=== PATIENT | female | born 1965 | race Caucasian/White ===

== ENCOUNTER 2018-12-12 06:57 | Inpatient (IN) | payer OTHER ==
--- NOTE | 2018-12-12 06:55 | PCM.PREANE ---
Preanesthetic Assessment - Anesthesia/Transfusion/Family Hx Anesthesia History: Prior Anesthesia Without Reaction Family History of Anesthesia Reaction: No Transfusion History: No Prior Transfusion(s) Intubation History: Unknown - Review of Systems General: No Symptoms Pulmonary: No Symptoms (ETOH: rarely), Cough (dry) Cardiovascular: No Symptoms (HTN) Gastrointestinal: No Symptoms Neurological: No Symptoms (vertigo) Other: Reports: None - Physical Assessment NPO Status Date: 12/11/18 NPO Status Time: 21:00 Vital Signs: BP: 170/88 resp: 18 temp:98.2F HR=85 Sat: 97% Height: 1.63 m Weight: 94 kg ASA Class: 2 Mental Status: Alert & Oriented x3 Airway Class: Mallampati = 2 Dentition: Reports: Normal Dentition, Omega(s), Caries Thyro-Mental Finger Breadths: 3 Mouth Opening Finger Breadths: 3 ROM/Head Extension: Full Lungs: Clear to Auscultation, Normal Respiratory Effort Cardiovascular: Regular Rate, Regular Rhythm, No Murmurs - Lab Values: Laboratory Last Values WBC 6.79 K/mm3 (3.98-10.04) 12/11/18 16:38 RBC 4.51 M/mm3 (3.98-5.22) 12/11/18 16:38 Hgb 13.8 gm/L (11.2-15.7) 12/11/18 16:38 Hct 41.9 % (34.1-44.9) 12/11/18 16:38 MCV 92.9 fl (79.4-94.8) 12/11/18 16:38 MCH 30.6 pg (25.6-32.2) 12/11/18 16:38 MCHC 32.9 g/dl (32.2-35.5) 12/11/18 16:38 RDW Std Deviation 43.7 fL (36.4-46.3) 12/11/18 16:38 Plt Count 300 K/mm3 (182-369) 12/11/18 16:38 MPV 9.7 fl (9.4-12.3) 12/11/18 16:38 Neut % (Auto) 51.4 % (34.0-71.1) 12/11/18 16:38 Lymph % (Auto) 36.4 % (19.3-51.7) 12/11/18 16:38 Lucas % (Auto) 11.6 % (4.7-12.5) 12/11/18 16:38 Eos % (Auto) 0.1 (0.7-5.8) L 12/11/18 16:38 Baso % (Auto) 0.4 % (0.1-1.2) 12/11/18 16:38 Neut # (Auto) 3.48 K/mm3 (1.56-6.13) 12/11/18 16:38 Lymph # (Auto) 2.47 K/mm3 (1.18-3.74) 12/11/18 16:38 Lucas # (Auto) 0.79 K/mm3 (0.24-0.36) H 12/11/18 16:38 Eos # (Auto) 0.01 K/mm3 (0.04-0.36) L 12/11/18 16:38 Baso # (Auto) 0.03 K/mm3 (0.01-0.08) 12/11/18 16:38 Sodium 138 mEq/L (136-145) 12/11/18 16:38 Potassium 3.6 mEq/L (3.5-5.1) 12/11/18 16:38 Chloride 100 mEq/L (98-107) 12/11/18 16:38 Carbon Dioxide 23 mEq/L (21-32) 12/11/18 16:38 Anion Gap 18.6 (5-15) H 12/11/18 16:38 BUN 13 mg/dL (7-18) 12/11/18 16:38 Creatinine 0.8 mg/dL (0.55-1.02) 12/11/18 16:38 Est Cr Clr Drug Dosing TNP 12/11/18 16:38 Estimated GFR (MDRD) > 60 mL/min (>60) 12/11/18 16:38 BUN/Creatinine Ratio 16.3 (14-18) 12/11/18 16:38 Glucose 134 mg/dL (74-106) H 12/11/18 16:38 Calcium 9.4 mg/dL (8.5-10.1) 12/11/18 16:38 Total Bilirubin 0.6 mg/dL (0.2-1.0) 12/11/18 16:38 AST 23 U/L (15-37) 12/11/18 16:38 ALT 26 U/L (14-59) 12/11/18 16:38 Alkaline Phosphatase 77 U/L (46-116) 12/11/18 16:38 Total Protein 7.8 g/dl (6.4-8.2) 12/11/18 16:38 Albumin 3.7 g/dl (3.4-5.0) 12/11/18 16:38 Globulin 4.1 gm/dL 12/11/18 16:38 Albumin/Globulin Ratio 0.9 (1-2) L 12/11/18 16:38 Urine Color Yellow (Yellow) 12/11/18 16:38 Urine Appearance Clear (Clear) 12/11/18 16:38 Urine pH 6.0 (5.0-8.0) 12/11/18 16:38 Ur Specific [place] 1.025 (1.005-1.030) 12/11/18 16:38 Urine Protein Negative (Negative) 12/11/18 16:38 Urine Glucose (UA) Negative (Negative) 12/11/18 16:38 Urine Ketones Negative (Negative) 12/11/18 16:38 Urine Occult Blood 1+ (Negative) H 12/11/18 16:38 Urine Nitrite Negative (Negative) 12/11/18 16:38 Urine Bilirubin Negative (Negative) 12/11/18 16:38 Urine Urobilinogen 0.2 (0.2-1.0) 12/11/18 16:38 Ur Leukocyte Esterase Negative (Negative) 12/11/18 16:38 Urine HCG, Qual Negative (NEGATIVE) 12/11/18 16:38 Blood Type O POSITIVE 12/11/18 16:38 All labs reviewed and noted and within acceptable ranges to proceed with scheduled procedure. - Imaging/EKG Impressions: EKG: SR rate= 86 - Allergies Allergies/Adverse Reactions: Allergies Allergy/AdvReac Type Severity Reaction Status Date / Time nickel Allergy Rash Verified 12/11/18 17:20 topical agents Allergy Rash Uncoded 12/11/18 17:20 - Anesthesia Plan Pre-Op Medication Ordered: None - Acknowledgements Anesthesia Type Planned: General Anesthesia Pt an Appropriate Candidate for the Planned Anesthesia: Yes Alternatives and Risks of Anesthesia Discussed w Pt/Guardian: Yes Pt/Guardian Understands and Agrees with Anesthesia Plan: Yes PreAnesthesia Questionnaire HEENT History: Reports: Sinusitis Cardiovascular History: Reports: High Cholesterol, Hypertension Respiratory History: Reports: None Gastrointestinal History: Reports: Other (See Below) Other Gastrointestinal History: colitis Genitourinary History: Reports: None 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 (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 Below) Other OB/BYN History: dysmenorrhea, menorrhagia Musculoskeletal History: Reports: None Neurological History: Reports: None Psychiatric History: Reports: None Endocrine/Metabolic History: Reports: None Hematologic History: Reports: None Immunologic History: Reports: None Oncologic (Cancer) History: Reports: None Dermatologic History: Reports: None - Past Surgical History Head Surgeries/Procedures: Reports: None Cardiovascular Surgical History: Reports: None Respiratory Surgical History: Reports: None GI Surgical History: Reports: None Female Surgical History: Reports: None Male Surgical History: Reports: None Endocrine Surgical History: Reports: None Neurological Surgical History: Reports: None Musculoskeletal Surgical History: Reports: None Oncologic Surgical History: Reports: None Dermatological Surgical History: Reports: None - SUBSTANCE USE Smoking Status *Q: Never Smoker - HOME MEDS Home Medications: Home Meds Calcium Carbonate [Calcium] 500 mg PO DAILY 12/11/18 [History] FA/Lycopene/Lut/MV,Ca,Iron,Min [Centrum] 1 tab PO DAILY 12/11/18 [History] Losartan Potassium 50 mg PO DAILY 12/11/18 [History] Rosuvastatin Calcium 10 mg PO DAILY 12/11/18 [History] - CURRENT (IN HOUSE) MEDS Current Meds: Current Medications Lactated Ringer's (Ringers, Lactated) 1,000 mls @ 125 mls/hr IV ASDIRECTED BARBARA Stop: 12/12/18 23:00 Lidocaine/Sodium Bicarbonate (Buffered Lidocaine 1% In Ns 8.4%) 0.25 ml IDERM ONETIME PRN PRN Reason: Prior to IV Start Stop: 12/12/18 18:00 Sodium Chloride (Saline Flush) 10 ml FLUSH ASDIRECTED PRN PRN Reason: Keep Vein Open Stop: 12/12/18 18:00
[~2018-12-12 06:57] MED LIST: Lactated Ringers 1,000 ML IV SCH; Lidocaine 1%/Sod Bicarbonate in NS 8.4% 1 ML Syringe IDERM PRN; Sodium Chloride 0.9% 10 ML Syringe FLUSH PRN
[2018-12-12] MEDS ORDERED: Lidocaine 1% 6 ML ONE (07:32)
[2018-12-12] MEDS ORDERED: Midazolam 1 MG/ML 2 ML SDV ONE (07:32)
[2018-12-12] MEDS ORDERED: Ketorolac 30 MG/ML SDV ONE (07:32)
[2018-12-12] MEDS ORDERED: Dexamethasone 4 MG/ML 5 ML MDV ONE (07:32)
[2018-12-12] MEDS ORDERED: Propofol 200 MG/20 ML SDV ONE (07:32)
[2018-12-12] MEDS ORDERED: Lactated Ringers 1,000 ML ONE (07:32)
[2018-12-12] MEDS ORDERED: Ondansetron 4 MG/2 ML SDV ONE (07:32)
[2018-12-12] MEDS ORDERED: ceFAZolin 1 GM Vial ONE (07:32)
[2018-12-12] MEDS ORDERED: HYDROmorphone 0.5 MG/0.5 ML Syringe ONE (07:32)
[2018-12-12] MEDS ORDERED: Phenylephrine/Normal Saline 100 MCG/ML 10 ML Syringe ONE (07:32)
[2018-12-12] MEDS ORDERED: fentaNYL 250 MCG/5 ML SDV ONE (07:33)
[2018-12-12] MEDS ORDERED: Rocuronium 50 MG/5 ML Vial ONE ×2 (07:38→08:59)
[2018-12-12] MEDS ORDERED: Bupivacaine 0.5% 30 ML SDV ONE (07:39)
[2018-12-12] MEDS ORDERED: Sodium Chloride 0.9% 50 ML SDV ONE (07:39)
[2018-12-12] MEDS ORDERED: Lidocaine 1% with EPINEPHrine 1:100,000 20 ML MDV ONE (07:39)
[2018-12-12] MEDS ORDERED: Ondansetron 4 MG/2 ML SDV IVPUSH PRN ×2 (08:37→11:34)
[2018-12-12] MEDS ORDERED: ePHEDrine/Normal Saline 25 MG/5 ML Syringe ONE (08:37)
[2018-12-12] MEDS ORDERED: diphenhydrAMINE 50 MG/ML SDV IVPUSH PRN (08:37)
[2018-12-12] MEDS ORDERED: ePHEDrine 50 MG/ML SDV IVPUSH PRN (08:37)
[2018-12-12] MEDS ORDERED: Phenylephrine 1 MG in Sodium Chloride 0.9% 10 ML IV SCH (08:45)
[2018-12-12] MEDS ORDERED: Neostigmine Methylsulfate 1 MG/ML 5 ML Syringe ONE (08:55)
--- NOTE | 2018-12-12 09:43 | PCM.POSTAN ---
POST ANESTHESIA ASSESSMENT - MENTAL STATUS Mental Status: Alert - VITAL SIGNS Vital Signs: Last Vital Signs Temp 98.5 C H 12/12/18 09:34 Pulse 85 12/12/18 09:34 Resp 18 12/12/18 09:34 BP 170/88 H 12/12/18 09:34 Pulse Ox 97 12/12/18 09:34 - RESPIRATORY Respiratory Status: Respiratory Rate WNL, Airway Patent, O2 Saturation Stable, Supplemental Oxygen - CARDIOVASCULAR CV Status: Pulse Rate WNL, Blood Pressure Stable - GASTROINTESTINAL GI Status: No Symptoms - POST OP HYDRATION Hydration Status: Adequate & Stable
--- NOTE | 2018-12-12 09:51 | PCM.OPNOTE ---
- General Post-Op/Procedure Note Date of Surgery/Procedure: 12/12/18 Operative Procedure(s): Total abdominal hysterectomy with bilateral salpingectomy and right oophorectomy through Pfannenstiel skin incision Findings: Uterus is small. Patient had a pedunculated fibroid coming off the posterior fundal area. Both ovaries were small but functional in appearance. No other pelvic pathology noted. Pre Op Diagnosis: 1. Menorrhagia. 2. Dysmenorrhea. 3. Uterine fibroid Post-Op Diagnosis: Same Anesthesia Technique: General ET Tube Other Anesthesia Type: Marcaine 0.5%15 mL local Primary Surgeon: Damian Ball Secondary Surgeon: Norman Murphy Anesthesia Provider: Annalisa Tomlinson Laser Cutter: Kati Veliz Reason Laser Cutter Was Necessary: Patient safety, quality of care, assistance and retraction. Pathology: Uterus, bilateral tubes and right ovary as 1 specimen Fluid Replacement, Intraop: 1,400 Output, Urine Amount: 125 EBL in mLs: 10 Drain/Tube Comments:: Indwelling bladder catheter Complications: None Condition: Good Free Text/Narrative:: Surgery duration: 45 minutes Procedure: After adequate consent was obtained, the patient was taken to the operating room. She was given 2 g of Ancef IV for infection prophylaxis. She had sequential compression stockings placed for DVT prophylaxis. She is administered general endotracheal anesthesia. After adequate administration of anesthesia patient patient examined under anesthesia. The narrow pubic angle and the smallness of the canal prohibited vaginal posterior hysterectomy. She was then placed in a frog-leg position and was prepped vaginally and abdominally in the routine fashion. Anderson catheter was placed. Patient's abdomen was then opened through her old Pfannenstiel skin incision scar. Old scar was removed as it was somewhat hypertrophic. The incision was carried down through skin, subcutaneous and fascial layers. Abdominal cavity was entered without problems. Anatomy as described above. A medium sized Edd self-retaining retractor was placed. The uterus was elevated with a double-tooth tenaculum at the fundus. Using a Enseal vessel closure device the right infundibulopelvic ligament and eventually the fallopian tube mesosalpinx was taken down. Left ovary was conserved per patient desire.he ovarian ligament, round ligament, broad ligament were then taken down in a routine stepwise fashion using the Enseal system. Same was done on patient' s left sideThe exception that the ovary was conserved. . The cardinal ligaments and taken down on each side to the level of the to the cervix. The angles of the vagina were then crossclamped using Stefania clamps 2 these pedicles were cut and were suture ligated with Stefania stitch of #1 Vicryl. A short running locked #1 Vicryl suture was then placed in the mid incision to complete the closure. Hemostasis was confirmed at this time. The pelvis was irrigated with fluid aspirated. The one sponge that had been placed was removed. The abdominal was then closed. The fascia was closed with a running suture of #1 PDS from angle to angle. The subcutaneous area was closed with 20 Monocryl suture first an interrupted layer. Subcuticular closure was then undertaken using 3-0 Monocryl suture on the Nicolás needle. The incision was further asked made with Prineo mesh. The patient was awakened from general endotracheal anesthesia and was discharged from the operating room in good condition.
[2018-12-12] MEDS ORDERED: Scopolamine 1.5 MG Transdermal Patch TOP ONE (10:04)
[2018-12-12] MEDS: HYDROmorphone 0.5 MG/0.5 ML Syringe IVPUSH PRN ×3 (10:11→11:07)
[2018-12-12] MEDS: fentaNYL 100 MCG/2 ML SDV IVPUSH PRN ×2 (10:21→10:48)
[2018-12-12] MEDS ORDERED: HYDROmorphone 0.5 MG/0.5 ML Syringe IVPUSH PRN (11:34)
[2018-12-12] MEDS ORDERED: Lactated Ringers 1,000 ML IV SCH (11:34)
[2018-12-12] MEDS ORDERED: Ibuprofen 400 MG Tab PO PRN (15:00)
[2018-12-12] MEDS: Acetaminophen/oxyCODONE 325-5 MG Tab PO PRN ×2 (15:28→21:04)
[2018-12-12] MEDS: Docusate Sodium 100 MG Cap PO SCH (20:37)
[2018-12-13] MEDS: Acetaminophen/oxyCODONE 325-5 MG Tab PO PRN (05:27)
--- NOTE | 2018-12-13 07:25 | PCM.DCSUM1 ---
Discharge Summary - Hospital Course Free Text/Narrative:: The patient is a 53-year-old 0 para 0 white female who was admitted on after a total abdominal hysterectomy with bilateral salpingectomy and right oophorectomy. She is admitted for pain control and control of nausea. He is done well in the course of her hospital stay. She is desiring discharge home at this time. Admitting diagnosis: 1. Menorrhagia 2. Dysmenorrhea 3. Uterine fibroid Diagnosis: Stroke: No - Discharge Data Discharge Date: 12/13/18 Discharge Disposition: Home, Self-Care 01 Condition: Good - Referral to Home Health Primary Care Physician: Мария Murphy NP - Patient Summary/Data Operative Procedure(s) Performed: Total abdominal hysterectomy with bilateral salpingectomy and right oophorectomy through Pfannenstiel skin incision - Patient Instructions Diet: Regular Diet as Tolerated Activity: As Tolerated (No intercourse or tampons. No lifting greater than 15 pounds or driving a car 1 week.) Driving: Do Not Drive Showering/Bathing: May Shower Wound/Incision Care: Keep Operative Site/Wound Site Clean and Dry Notify Provider of: Fever, Increased Pain, Swelling and Redness, Drainage, Nausea and/or Vomiting - Discharge Plan Prescriptions/Med Rec: Ibuprofen 600 mg PO Q4HR PRN #30 tablet PRN Reason: Pain Home Medications: Home Meds Calcium Carbonate [Calcium] 500 mg PO DAILY 12/11/18 [History] FA/Lycopene/Lut/MV,Ca,Iron,Min [Centrum] 1 tab PO DAILY 12/11/18 [History] Losartan Potassium 50 mg PO DAILY 12/11/18 [History] Rosuvastatin Calcium 10 mg PO DAILY 12/11/18 [History] Rosuvastatin Calcium 12/12/18 [History] Acetaminophen/oxyCODONE [Percocet 325-5 MG] 2 tab PO Q4H PRN tablet 12/13/18 [ Rx] Ibuprofen 600 mg PO Q4HR PRN #30 tablet 12/13/18 [Rx] Referrals: Damian Ball MD [Physician] - (Return to clinicDr. [facility]4 weeks.) - Discharge Summary/Plan Comment DC Time >30 min.: No Discharge Summary/Plan Comment: Discharge instructions: 1. Discharge home 2. Diet, activity and follow-up discussed with patient. 3. Precautions given concern increased pain, bleeding, temperature, signs/ symptoms of DVT/PE. 4. Medications per home medication was printed, discussed with and given to the patient. 5. Return to clinic-Dr. Ball[facility] in 4 weeks. Diagnosis: 1. Menorrhagia 2. Dysmenorrhea 3. Uterine fibroid Condition: Good - Patient Data Vitals - Most Recent: Last Vital Signs Temp 36.7 C 12/13/18 05:12 Pulse 86 12/13/18 05:12 Resp 18 12/13/18 05:12 BP 143/77 H 12/13/18 05:12 Pulse Ox 92 L 12/13/18 05:12 Weight - Most Recent: 96.524 kg I&O - Last 24 hours: Intake & Output 12/12/18 12/13/18 12/13/18 22:59 06:59 14:59 Intake Total 300 400 Output Total 225 900 Balance 75 -500 Med Orders - Current: Current Medications Docusate Sodium (Colace) 100 mg PO BID [facility] Last Admin: 12/12/18 20:37 Dose: 100 mg Hydromorphone HCl (Dilaudid) 0.2 mg IVPUSH Q2H PRN PRN Reason: Pain (severe 7-10) Ibuprofen (Motrin) 600 mg PO Q6H PRN PRN Reason: Pain (mild 1-3) Losartan Potassium (Cozaar) 50 mg PO DAILY [facility] Ondansetron HCl (Zofran) 4 mg IVPUSH Q4H PRN PRN Reason: Nausea/Vomiting Oxycodone/Acetaminophen (Percocet 325-5 Mg) 2 tab PO Q4H PRN PRN Reason: Pain (moderate 4-6) Last Admin: 12/13/18 05:27 Dose: 2 tab Discontinued Medications Bupivacaine HCl (Marcaine 0.5%) Confirm Administered Dose 30 ml .ROUTE .STK-MED ONE Stop: 12/12/18 07:40 Last Admin: 12/12/18 08:36 Dose: 10 ml Cefazolin Sodium (Ancef) Confirm Administered Dose 2 gm .ROUTE .STK-MED ONE Stop: 12/12/18 07:33 Dexamethasone (Dexamethasone) Confirm Administered Dose 20 mg .ROUTE .STK-MED ONE Stop: 12/12/18 07:33 Diphenhydramine HCl (Benadryl) 25 mg IVPUSH Q6H PRN PRN Reason: pruritis Stop: 12/12/18 12:00 Last Admin: 12/12/18 10:07 Dose: 25 mg Ephedrine Sulfate (Ephedrine Sulfate) 5 mg IVPUSH ASDIRECTED PRN PRN Reason: Hypotension Stop: 12/12/18 12:00 Ephedrine Sulfate (Ephedrine In Ns) Confirm Administered Dose 25 mg .ROUTE .STK- MED ONE Stop: 12/12/18 08:38 Fentanyl (Sublimaze) Confirm Administered Dose 250 mcg .ROUTE .STK-MED ONE Stop: 12/12/18 07:34 Fentanyl (Sublimaze) 50 mcg IVPUSH Q5M PRN PRN Reason: Pain Stop: 12/12/18 12:00 Last Admin: 12/12/18 10:48 Dose: 50 mcg Glycopyrrolate () Confirm Administered Dose 1 mg .ROUTE .STK-MED ONE Stop: 12/12/18 08:56 Hydromorphone HCl (Dilaudid) Confirm Administered Dose 0.5 mg .ROUTE .STK-MED ONE Stop: 12/12/18 07:33 Hydromorphone HCl (Dilaudid) 0.5 mg IVPUSH Q15M PRN PRN Reason: Pain (severe 7-10) Stop: 12/12/18 12:00 Last Admin: 12/12/18 11:07 Dose: 0.5 mg Lactated Ringer's (Ringers, Lactated) 1,000 mls @ 125 mls/hr IV ASDIRECTED BARBARA Stop: 12/12/18 23:00 Last Admin: 12/12/18 07:20 Dose: 125 mls/hr Lidocaine HCl (Xylocaine-Mpf 1%) Confirm Administered Dose 6 mls @ as directed .ROUTE .STK-MED ONE Stop: 12/12/18 07:33 Lactated Ringer's (Ringers, Lactated) Confirm Administered Dose 1,000 mls @ as directed .ROUTE .STK-MED ONE Stop: 12/12/18 07:33 Acetaminophen (Ofirmev) 100 mls @ 400 mls/hr IV NOW ONE Stop: 12/12/18 08:49 Last Admin: 12/12/18 23:25 Dose: Not Given Phenylephrine HCl 1 mg/ Sodium (Chloride) 10.1 mls @ 1 mls/sec IV TITRATE BARBARA; Protocol Stop: 12/12/18 12:00 Lactated Ringer's (Ringers, Lactated) 1,000 mls @ 125 mls/hr IV ASDIRECTED [facility] Ketorolac Tromethamine (Toradol) Confirm Administered Dose 30 mg .ROUTE .STK- MED ONE Stop: 12/12/18 07:33 Lidocaine/Epinephrine (Xylocaine 1% With Epinephrine 1:100,000) Confirm Administered Dose 20 ml .ROUTE .STK-MED ONE Stop: 12/12/18 07:40 Lidocaine/Sodium Bicarbonate (Buffered Lidocaine 1% In Ns 8.4%) 0.25 ml IDERM ONETIME PRN PRN Reason: Prior to IV Start Stop: 12/12/18 18:00 Last Admin: 12/12/18 07:20 Dose: 0.25 ml Midazolam HCl (Versed 1 Mg/Ml) Confirm Administered Dose 2 mg .ROUTE .STK-MED ONE Stop: 12/12/18 07:33 Neostigmine Methylsulfate (Neostigmine) Confirm Administered Dose 5 mg .ROUTE .STK-MED ONE Stop: 12/12/18 08:56 Ondansetron HCl (Zofran) Confirm Administered Dose 4 mg .ROUTE .STK-MED ONE Stop: 12/12/18 07:33 Ondansetron HCl (Zofran) 4 mg IVPUSH ONETIME PRN PRN Reason: Nausea/Vomiting Stop: 12/12/18 12:00 Last Admin: 12/12/18 09:53 Dose: 4 mg Phenylephrine HCl (Phenylephrine In Ns 100 Mcg/Ml) Confirm Administered Dose 1 mg .ROUTE .STK-MED ONE Stop: 12/12/18 07:33 Propofol (Diprivan 20 Ml) Confirm Administered Dose 200 mg .ROUTE .STK-MED ONE Stop: 12/12/18 07:33 Rocuronium [place] (Zemuron) Confirm Administered Dose 50 mg .ROUTE .STK-MED ONE Stop: 12/12/18 07:39 Rocuronium [place] (Zemuron) Confirm Administered Dose 50 mg .ROUTE .STK-MED ONE Stop: 12/12/18 09:00 Scopolamine (Transderm-Scop) 1.5 mg TOP ONETIME ONE Stop: 12/12/18 10:05 Last Admin: 12/12/18 10:17 Dose: 1.5 mg Sodium Chloride (Saline Flush) 10 ml FLUSH ASDIRECTED PRN PRN Reason: Keep Vein Open Stop: 12/12/18 18:00 Sodium Chloride (Normal Saline) Confirm Administered Dose 50 ml .ROUTE .STK-MED ONE Stop: 12/12/18 07:40
--- NOTE | 2018-12-13 07:52 | PCM48HPAN ---
Post Anesthesia Note - EVALUATION WITHIN 48HRS OF ANESTHETIC Vital Signs in Normal Range: Yes Patient Participated in Evaluation: Yes Respiratory Function Stable: Yes Airway Patent: Yes Cardiovascular Function Stable: Yes Hydration Status Stable: Yes Pain Control Satisfactory: Yes Nausea and Vomiting Control Satisfactory: Yes (nausea on and off) Mental Status Recovered: Yes Vital Signs: Last Vital Signs Temp 98.1 F 12/13/18 05:12 Pulse 86 12/13/18 05:12 Resp 18 12/13/18 05:12 BP 143/77 H 12/13/18 05:12 Pulse Ox 92 L 12/13/18 05:12
[2018-12-13] MEDS: Docusate Sodium 100 MG Cap PO SCH (08:21)
[2018-12-13] MEDS ORDERED: Ibuprofen 600 MG Tab PO PRN (08:39)
[2018-12-13] MEDS ORDERED: Losartan 25 MG Tab PO SCH (09:00)
== END 2018-12-13 09:20 | disposition home or self-care (01) | DRG 743 ==
LOC: JD.SDS 06:57 → JD.OB 09:35 → JD.MS 22:32
PROVIDERS: ADMIT Obstetrics & Gynecology; ATTEND Obstetrics & Gynecology
PROC: 0UT90ZZ Resection of Uterus, Open Approach (ICD-10-PCS; principal; 2018-12-12)
PROC: 0UT70ZZ Resection of Bilateral Fallopian Tubes, Open Approach (ICD-10-PCS; 2018-12-12)
PROC: 0UT00ZZ Resection of Right Ovary, Open Approach (ICD-10-PCS; 2018-12-12)
DX: D25.9 Leiomyoma of uterus, unspecified (principal); N94.6 Dysmenorrhea, unspecified; N92.0 Excessive and frequent menstruation with regular cycle; I10 Essential (primary) hypertension; Z88.8 Allergy status to other drugs, medicaments and biological substances; E78.00 Pure hypercholesterolemia, unspecified; Z79.899 Other long term (current) drug therapy
CPT/HCPCS: 00840; 36415; 80053; 81003; 81025; 85025; 86900; 86901; 93005; A9270-GY; J0690; J1100; J1170; J1200; J1885; J2001; J2250; J2370; J2405; J2704; J2710; J3010; J3490; J7050; J7120

== ENCOUNTER 2019-12-27 23:00 | Emergency (ER) | payer OTHER ==
[2019-12-28] MEDS ORDERED: Famotidine 20 MG/2 ML SDV IVPUSH ONE (00:02)
[2019-12-28] MEDS ORDERED: methylPREDNISolone Sodium Succinate 125 MG/2 ML SDV IVPUSH ONE (00:02)
[2019-12-28] MEDS ORDERED: diphenhydrAMINE 50 MG/ML SDV IVPUSH ONE (00:02)
--- NOTE | 2019-12-28 00:06 | EDM.PDOC ---
ED HPI GENERAL MEDICAL PROBLEM - General Chief Complaint: Allergic Reaction Stated Complaint: ALLERGIC REACTION - HIVES Time Seen by Provider: 12/28/19 00:01 Source of Information: Reports: Patient History Limitations: Reports: No Limitations - History of Present Illness INITIAL COMMENTS - FREE TEXT/NARRATIVE: 54-year-old female presents to the ED with an acute on chronic urticarial reaction. Patient has been suffering from recurrent chronic urticaria since late November. She has had this off and on in the past as well. She reports previous evaluations revealed that she was allergic to almost everything when tested. Worsening symptoms of particularly marked swelling of her upper and lower lips facial erythema swelling of upper and lower eyelids and generalized pruritus started about 1800 hrs. tonight. She reports this occurred after having 2 sips of a red wine. Not sure if this was connected with the development of symptoms or not. Patient is taken Benadryl 50 mg shortly after symptoms started about 1815 hrs. and again at 2230 hrs. before coming to the ED. She states that the second dose of Benadryl appears to be helping as her lips are a little less swollen than they were. She appreciates a tickle in the back of her throat and it need to clear her throat but not a pressure per se and no shortness of breath or wheezing. She states on average she has 2-4 hives breakout every day. A severe breakout occurred after getting in a hot tub in a hotel room a few weeks ago. She does not appreciate breakout when in a hot shower. Onset: Sudden Onset Date: 12/27/19 Onset Time: 18:00 Duration: Hour(s):, Getting Worse Location: Reports: Face (Perhaps a slight tickle in the back of her throat.) Quality: Reports: Other (Acute allergic reaction) Severity: Moderate Improves with: Reports: Medication (Benadryl orally x2 since onset of erythema and swelling of lips and eyelids and generalized pruritus has helped some.) Worsens with: Reports: None Context: Reports: Other (History of chronic urticaria worse since the last part of November. No definitive culprit identified to have precipitated recurrence of chronic urticaria.). Denies: Activity, Exercise, Lifting, Sick Contact, Trauma Associated Symptoms: Reports: Rash. Denies: Confusion, Chest Pain, Cough, cough w sputum, Fever/Chills, Headaches, Loss of Appetite, Malaise, Nausea/Vomiting (Diffuse facial erythema with marked swelling of her lips upper than lower and eyelids both uppers and lowers.), Seizure, Shortness of Breath, Syncope, Weakness Treatments MANAGER FURNITURE: Reports: Other (see below) (Patient took 50 mg of Benadryl at 1815 hrs. and again at 2230 hrs. she feels the last dose helps help reduce some of the swelling in her lips.) Other Treatments MANAGER FURNITURE: bedadryl - Related Data Allergies Allergy/AdvReac Type Severity Reaction Status Date / Time nickel Allergy Rash Verified 12/27/19 23:52 rubber Allergy Rash Uncoded 12/28/19 01:48 topical agents Allergy Rash Uncoded 12/28/19 01:48 Home Meds: Home Meds Calcium Carbonate [Calcium] 500 mg PO DAILY 12/11/18 [History] Losartan Potassium 50 mg PO DAILY 12/11/18 [History] Rosuvastatin Calcium 10 mg PO DAILY 12/11/18 [History] Ibuprofen 600 mg PO Q4HR PRN #30 tablet 12/13/18 [Rx] Cetirizine [ZyrTEC] 10 mg PO DAILY #30 tab 12/28/19 [Rx] predniSONE [Prednisone] 20 mg PO BID #18 tablet 12/28/19 [Rx] Past Medical History HEENT History: Reports: Sinusitis Cardiovascular History: Reports: High Cholesterol, Hypertension Respiratory History: Reports: None Gastrointestinal History: Reports: Other (See Below) Other Gastrointestinal History: colitis Genitourinary History: Reports: None 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 Flareup since the end of November this year. Gets on average 2-4 hives daily.). Denies: Angiodema (Patient used to be on lisinopril it was discontinued because of cough development. She has been on losartan for about a year.) - Past Surgical History Head Surgeries/Procedures: Reports: None Cardiovascular Surgical History: Reports: None Respiratory Surgical History: Reports: None GI Surgical History: Reports: None Female Surgical History: Reports: Hysterectomy Endocrine Surgical History: Reports: None Neurological Surgical History: Reports: None Musculoskeletal Surgical History: Reports: None Oncologic Surgical History: Reports: None Dermatological Surgical History: Reports: None Social & Family History - Tobacco Use Smoking Status *Q: Never Smoker - Caffeine Use Caffeine Use: Reports: None - Recreational Drug Use Recreational Drug Use: No - Living Situation & Occupation Living situation: Reports: Occupation: Unemployed ED ROS ALLERGIC REACTION - Review of Systems Review Of Systems: See Below Constitutional: Reports: Fatigue. Denies: Fever, Chills, Malaise, Weakness, Decreased Appetite, Weight Loss HEENT: Reports: Other (Appreciable swelling of upper and lower eyelids with allergic reaction as well as upper and lower lips. Diffuse facial erythema. Generalized pruritus) Respiratory: Reports: Other (A feeling of need to clear her throat but no sputum development.). Denies: Shortness of Breath, Wheezing, Pleuritic Chest Pain, Cough Cardiovascular: Reports: Blood Pressure Problem, Edema (Currently has significant edema of her upper and lower lip lips and both upper and lower eyelids. Facial swelling as well). Denies: Chest Pain, Claudication, Dyspnea on Exertion, Lightheadedness, Orthopnea (Hypertension), Palpitations Endocrine: Reports: Fatigue GI/Abdominal: Reports: No Symptoms : Reports: No Symptoms Musculoskeletal: Reports: No Symptoms Skin: Reports: Pruritis, Other (History of chronic urticaria dating back at least 5 years. Recent flareup since the end of November.) Neurological: Reports: No Symptoms. Denies: Confusion, Dizziness, Headache, N umbness, Paresthesia, Pre-Existing Deficit, Seizure, Syncope, Tingling, Tremors, Trouble Speaking, Difficulty Walking, Weakness, Change in Speech, Gait Disturbance Psychiatric: Reports: No Symptoms Hematologic/Lymphatic: Reports: No Symptoms ED EXAM GENERAL NO PERIP PULSE - Physical Exam Exam: See Below Exam Limited By: No Limitations General Appearance: Alert, WD/WN, Mild Distress, Other (Obvious significant facial erythema also anterior neck erythema. Marked swelling of upper and lower eyelids little worse on the right as compared to the left. Marked swelling of both upper and lower lips. Vital signs are showing a temperature of 36.6 heart rate is 96 and sinus respiratory 16 pulse ox is 96% room air BP elevated 1 8196.) Eye Exam: Bilateral Eye: Periorbital Changes (Patient has marked edema both upper and lower eyelids worse on the right side as compared to the left. So she with diffuse facial erythema and swelling particularly of upper and lower lips.) Ears: Normal TMs Nose: Normal Inspection Throat/Mouth: Other (Patient has significant swelling of both upper and lower lips. There was no swelling of the floor the mouth or the uvula was normal. Tongue is normal.) Head: Atraumatic, Normocephalic Neck: Normal Inspection, Supple, Non-Tender, Full Range of Motion. No: Carotid Bruit, Lymphadenopathy (L), Lymphadenopathy (R) Respiratory/Chest: No Respiratory Distress, Lungs Clear, Normal Breath Sounds, No Accessory Muscle Use. No: Wheezing Cardiovascular: Normal Peripheral Pulses, Regular Rate, Rhythm, No Edema, No Gallop, No Murmur, No Rub GI/Abdominal: Normal Bowel Sounds, Soft, Non-Tender, No Organomegaly, Other (Mildly obese.) Back Exam: Normal Inspection. No: CVA Tenderness (L), CVA Tenderness (R) Extremities: Normal Inspection, Normal Range of Motion, Non-Tender, No Pedal Edema Neurological: Alert, Oriented, CN II-XII Intact, Normal Cognition Psychiatric: Normal Affect, Normal Mood Skin Exam: Warm, Dry, Intact, Normal Color, Erythema (Diffuse facial erythema secondary to allergic reaction. This is associate with marked edema both upper and lower eyelids and her lips. Slight erythema of the anterior aspect of her neck as well.) Course - Vital Signs Last Recorded V/S: Last Vital Signs Temp 36.6 C 12/27/19 23:47 Pulse 96 12/27/19 23:47 Resp 16 12/27/19 23:47 BP 181/96 H 12/27/19 23:47 Pulse Ox 96 12/27/19 23:47 - Orders/Labs/Meds Meds: Medications Discontinued Medications Generic Name Dose Route Start Last Admin Trade Name Freq PRN Reason Stop Dose Admin Diphenhydramine HCl 50 mg 12/28/19 00:02 12/28/19 00:24 Benadryl IVPUSH 12/28/19 00:03 50 mg ONETIME ONE Administration Famotidine 20 mg 12/28/19 00:02 12/28/19 00:26 Pepcid IVPUSH 12/28/19 00:03 20 mg ONETIME ONE Administration Sodium Chloride 1,000 mls @ 500 mls/hr 12/28/19 00:15 12/28/19 00:24 Normal Saline IV 500 mls/hr ASDIRECTED BARBARA Administration Methylprednisolone Sodium Succinate 125 mg 12/28/19 00:02 12/28/19 00:27 Solu-Medrol IVPUSH 12/28/19 00:03 125 mg ONETIME ONE Administration - Radiology Interpretation Free Text/Narrative:: 54-year-old female presents to the ED with an acute allergic response to unknown substance or trigger. This involves mostly her face with diffuse erythema and edema both upper and lower eyelids as well as both upper and lower lips. No swelling of the tongue floor the mouth or uvula. No respiratory embarrassment or wheezing. Patient has a history of chronic urticaria dating back at least 5 to 6 years. Allergy tests have been carried out by Dr. Lorenzo in the past. Is found to be extremely sensitive to metals such as nickel and latex and neoprene rubber. However she reacted to all of the test that he administered. Patient has had a flareup of chronic urticaria since the end of November. Usually gets 2-4 hives every day. She is almost had to use Benadryl on a daily basis. Last night symptoms started after having 2 sips of a red wine. Not sure if this was the trigger or not. About 1800 hrs. she developed diffuse swelling of the face with erythema and edema both upper and lower lips as well as eyelids and face. Erythema of the neck as well with the generalized pruritus feeling. Sporadic hives on her extremities. Patient last took Benadryl orally at 2230 hrs. Plan she will be given 50 mg of Benadryl IV with Pepcid 20 mg IV and Solu- Medrol 125 mg IV at this time. - Re-Assessments/Exams Free Text/Narrative Re-Assessment/Exam: 12/28/19 00:35: Patient is revealing slight lessening of erythema of the face. She reports improvement in the pruritus. She also feels the swelling in her lips is going down. I also appreciate the edema of the right upper eyelid to be improving. 12/28/19 00:15 : Patient is improved in terms of symptoms. Erythema of the face is fading. She reports pruritus is much improved. Swelling of the eyelids is improved as has swelling of the lips. Patient will be discharged on prednisone 20 mg twice daily breakfast and supper for the next 6 days and then 1 tab in the morning only for another 6 days to see if we can bring chronic urticaria under better control as well. Suggest trial of Zyrtec 10 mg daily as well. Failing this she could also try Juli once daily as both are indicated for chronic urticaria. Will return to medical care if any further problems develop or worsening of symptoms. Departure - Departure Time of Disposition: 01:13 Disposition: Home, Self-Care 01 Condition: Fair Clinical Impression: Acute urticaria, History of chronic urticaria - Discharge Information *PRESCRIPTION DRUG MONITORING PROGRAM REVIEWED*: Not Applicable *COPY OF PRESCRIPTION DRUG MONITORING REPORT IN PATIENT SANDRA: Not Applicable Prescriptions: predniSONE [Prednisone] 20 mg PO BID #18 tablet Cetirizine [ZyrTEC] 10 mg PO DAILY #30 tab Instructions: Blanca Referrals: Мария Murphy NP [Primary Care Provider] - Forms: ED Department Discharge Additional Instructions: Evaluation in the emergency room tonight in regards to acute urticaria on top of a history of chronic urticaria since the end of November this year. History of idiopathic chronic urticaria with numerous allergens identified on previous testing with Dr. Lorenzo. You developed an acute urticarial reaction tonight for unknown reason. You appreciated worsening after drinking a few sips of of wine at 1800hrs last night. You developed significant swelling of your lips and diffuse redness and swelling of your entire face including your eyelids with generalized itching. You were treated with intravenous Benadryl 50 mg in the ED with Pepcid 20 mg and Solu-Medrol 125 mg IV and symptoms started to slowly racheal after about an hour. Suggest treatment as an outpatient with prednisone 20 mg twice daily with breakfast and supper for 6 days and once in the morning only for another 6 days to help bring urticaria under control. Also suggest using Zyrtec 10 mg once daily for the next 3 months in an effort to bring chronic urticaria under control. You can still use Benadryl 50 mg every 6 hours if needed for recurrence of itching and/or swelling. Some people do appreciate that Juli will work just as well if not better than Zyrtec for chronic urticaria both of these medications are now [id number]. Reurn to the ER if any similar problems develop. Sepsis Event Note (ED) - Evaluation Sepsis Screening Result: No Definite Risk
[2019-12-28] MEDS ORDERED: Sodium Chloride 0.9% 1,000 ML IV SCH (00:15)
== END 2019-12-28 01:30 | disposition home or self-care (01) ==
LOC: JD.ED 23:00
DX: L50.0 Allergic urticaria (principal); E78.00 Pure hypercholesterolemia, unspecified; I10 Essential (primary) hypertension; Z88.8 Allergy status to other drugs, medicaments and biological substances; Z91.048 Other nonmedicinal substance allergy status; Z79.899 Other long term (current) drug therapy
CPT/HCPCS: 96361; 96374; 96375; 99283; J1200; J2930; J3490; J7030